=== PATIENT | female | born 1950 | race Caucasian/White ===

== ENCOUNTER 2021-03-14 09:10 | Emergency (ER) | payer MEDICARE, OTHER ==
--- NOTE | 2021-03-14 09:56 | EDM.PDOC ---
<Srinivasa Perry - Last Filed: 03/14/21 19:23> ED HPI GENERAL MEDICAL PROBLEM - General Chief Complaint: Abdominal Pain Stated Complaint: ABDOMINAL PAIN Time Seen by Provider: 03/14/21 09:46 - History of Present Illness INITIAL COMMENTS - FREE TEXT/NARRATIVE: 70-year-old female presents the emergency room with abdominal pain. This is been going on for a couple of days now. She says that she gets the dry heaves with this and this actually helps relieve some of the pressure. Patient has had a significant history of a bariatric surgery back in 1984 where she had a stapling procedure done. Patient has not had any fevers or chills no diarrhea no black or tarry stools. Patient gets intermittent discomfort in this area and Mylanta usually helps with this. The patient had an EGD done this spring and everything was reported back to the patient is normal. Patient also had a cardiac catheterization done about a month ago and everything was reported back to the patient is normal. Patient does have a history of a bowel obstruction a couple of years ago. Bilateral Upper Abdomen Pain Score (Numeric/FACES): 8 - Related Data Allergies Allergy/AdvReac Type Severity Reaction Status Date / Time No Known Allergies Allergy Verified 03/14/21 22:49 Home Meds: Home Meds . [No Known Home Meds] 03/14/21 [History] Past Medical History Endocrine/Metabolic History: Reports: Obesity/BMI 30+ - Past Surgical History HEENT Surgical History: Reports: Tonsillectomy GI Surgical History: Reports: Bariatric Procedure, Cholecystectomy, Other (See Below) Other GI Surgeries/Procedures: Leak from gastric bypass in 2018 that required her abdomen to be opened to fix it. Social & Family History - Tobacco Use Tobacco Use Status *Q: Never Tobacco User - Caffeine Use Caffeine Use: Reports: Coffee, Tea - Recreational Drug Use Recreational Drug Use: No ED ROS GENERAL - Review of Systems Review Of Systems: See Below Constitutional: Reports: No Symptoms HEENT: Reports: No Symptoms, Vertigo Cardiovascular: Reports: No Symptoms GI/Abdominal: Reports: Abdominal Pain, Nausea, Vomiting. Denies: Black Stool, Bloody Stool, Constipation, Diarrhea : Reports: No Symptoms Musculoskeletal: Reports: No Symptoms Skin: Reports: No Symptoms Neurological: Reports: No Symptoms ED EXAM, GENERAL - Physical Exam Exam: See Below Exam Limited By: No Limitations General Appearance: Alert, No Apparent Distress, Obese Head: Atraumatic, Normocephalic Neck: Normal Inspection, Supple, Non-Tender, Full Range of Motion Respiratory/Chest: No Respiratory Distress, Lungs Clear, Normal Breath Sounds Cardiovascular: Regular Rate, Rhythm, No Edema, No Murmur GI/Abdominal: Normal Bowel Sounds, Soft, Tender (Left upper quadrant and epigastric discomfort) Back Exam: Normal Inspection. No: CVA Tenderness (L), CVA Tenderness (R) Extremities: Normal Inspection, No Pedal Edema Neurological: Alert, Oriented, Normal Cognition Course - Re-Assessments/Exams Free Text/Narrative Re-Assessment/Exam: 03/14/21 11:29 Was considering checking a GI, cocktail to see if this helps with her symptoms after reviewing her labs. Patient does not think she can get this down she is not convinced that the Zofran that we gave her with with the fluid bolus actually helped much she at this time she would like something for pain. I will go ahead and check a CT at this time as I am uncertain exactly what she had do ne with her stomach. 03/14/21 11:33 Also her urine is contaminated we will check a mini cath specimen 03/14/21 15:[address] Skaggs, on-call surgeon he was able to review the CAT scan he will come down and evaluate the patient. 03/14/21 18:21 She was evaluated by Dr. Skaggs please refer to his note he had the opportunity to discuss this with the surgeons at [facility] whose recommendation was to transfer the patient to [facility] in [place]. I discussed the situation with Suzi at the transfer center at [facility] who discussed the situation with Dr. Jenkins who is in the middle of her procedure and will get back to me in approximately 20 minutes. 03/14/21 19:23 I did review the situation with Dr. Jenkins who agrees the patient should come over however he needs to find an accepting physician from either surgery or gastroenterology he is working on it at this time and will get back to us. Departure - Departure Disposition: DC/Tfer to Acute Hospital 02 Clinical Impression: Abdominal pain, Nausea, Status post gastric bypass for obesity - Discharge Information Referrals: PCP,None [Ordering Only Provider] - Forms: ED Department Discharge Sepsis Event Note (ED) - Evaluation Sepsis Screening Result: No Definite Risk <Wan Thurston - Last Filed: 03/14/21 23:09> #1 Interpretation EKG Date: 03/14/21 Time: 10:06 Rhythm: NSR Rate (Beats/Min): 63 [place]: Normal P-Wave: Present QRS: Normal ST-T: Normal QT: Normal Comparison: NA - No Prior EKG Course - Vital Signs Last Recorded V/S: Last Vital Signs Temp 35.9 C L 03/14/21 09:17 Pulse 77 03/14/21 10:30 Resp 16 03/14/21 09:17 BP 140/90 03/14/21 10:30 Pulse Ox 99 03/14/21 10:30 - Orders/Labs/Meds Orders: Active Orders 24 hr Category Date Time Status EKG Documentation Completion [RC] STAT Care 03/14/21 09:56 Active Insert Urinary Catheter [OM.PC] Stat Care 03/14/21 12:20 Ordered Urinary Catheter Assessment [RC] ASDIRECTED Care 03/14/21 12:42 Active CULTURE URINE [MREF] Stat Lab 03/14/21 10:03 Stop Req Lactated Ringers [Ringers, Lactated] 1,000 ml Med 03/14/21 10:15 Active IV ASDIRECTED Sodium Chloride 0.9% [Saline Flush] Med 03/14/21 11:49 Active 10 ml FLUSH ONETIME PRN Medication Orders Lactated Ringer's (Ringers, Lactated) 1,000 mls @ 125 mls/hr IV ASDIRECTED DORA Last Admin: 03/14/21 19:29 Dose: 125 mls/hr Documented by: KEYUR Sodium Chloride (Sodium Chloride 0.9% 10 Ml Syringe) 10 ml FLUSH ONETIME PRN PRN Reason: IV FLUSH Last Admin: 03/14/21 12:59 Dose: 10 ml Documented by: MICHELLE Labs: Laboratory Tests 03/14/21 03/14/21 03/14/21 Range/Units 09:27 09:27 10:03 WBC 7.51 (3.98-10.04) K/mm3 RBC 4.45 (3.98-5.22) M/mm3 Hgb 14.4 (11.2-15.7) gm/dl Hct 42.7 (34.1-44.9) % MCV 96.0 H (79.4-94.8) fl MCH 32.4 H (25.6-32.2) pg MCHC 33.7 (32.2-35.5) g/dl RDW Std Deviation 45.1 (36.4-46.3) fL Plt Count 255 (182-369) K/mm3 MPV 10.2 (9.4-12.3) fl Neut % (Auto) 82.4 H (34.0-71.1) % Lymph % (Auto) 11.7 L (19.3-51.7) % [place] % (Auto) 5.3 (4.7-12.5) % Eos % (Auto) 0.3 L (0.7-5.8) Baso % (Auto) 0.3 (0.1-1.2) % Neut # (Auto) 6.19 H (1.56-6.13) K/mm3 Lymph # (Auto) 0.88 L (1.18-3.74) K/mm3 [place] # (Auto) 0.40 H (0.24-0.36) K/mm3 Eos # (Auto) 0.02 L (0.04-0.36) K/mm3 Baso # (Auto) 0.02 (0.01-0.08) K/mm3 Sodium 143 (136-145) mEq/L Potassium 3.9 (3.5-5.1) mEq/L Chloride 105 (98-107) mEq/L Carbon Dioxide 26 (21-32) mEq/L Anion Gap 15.9 H (5-15) BUN 18 (7-18) mg/dL Creatinine 1.5 H (0.55-1.02) mg/dL Est Cr Clr Drug Dosing 29.28 mL/min Estimated GFR (MDRD) 34 (>60) mL/min BUN/Creatinine Ratio 12.0 L (14-18) Glucose 132 H (70-99) mg/dL Calcium 9.1 (8.5-10.1) mg/dL Total Bilirubin 0.8 (0.2-1.0) mg/dL AST 23 (15-37) U/L ALT 24 (14-59) U/L Alkaline Phosphatase 95 (46-116) U/L Troponin I < 0.017 (0.00-0.056) ng/mL Total Protein 6.8 (6.4-8.2) g/dl Albumin 3.6 (3.4-5.0) g/dl Globulin 3.2 gm/dL Albumin/Globulin Ratio 1.1 (1-2) Lipase 157 (73-393) U/L Urine Color Dark yellow (Yellow) Urine Appearance Clear (Clear) Urine pH 6.5 (5.0-8.0) Ur Specific [place] 1.025 (1.005-1.030) Urine Protein 1+ H (Negative) Urine Glucose (UA) Negative (Negative) Urine Ketones Negative (Negative) Urine Occult Blood Negative (Negative) Urine Nitrite Negative (Negative) Urine Bilirubin 1+ H (Negative) Urine Urobilinogen 0.2 (0.2-1.0) Ur Leukocyte Esterase Trace H (Negative) U Hyaline Cast (Auto) 0-5 (0-5) /lpf Urine RBC 5-10 H (0-5) /hpf Urine WBC 10-20 H (0-5) /hpf Ur Epithelial Cells (0-5) /hpf Ur Squamous Epith Cells 5-10 H (0-5) /hpf Amorphous Sediment (NOT SEEN) /hpf Urine Bacteria Moderate H (FEW) /hpf Urine Mucus Moderate H (FEW) /hpf /15/ Range/Units 12:20 WBC (3.98-10.04) K/mm3 RBC (3.98-5.22) M/mm3 Hgb (11.2-15.7) gm/dl Hct (34.1-44.9) % MCV (79.4-94.8) fl MCH (25.6-32.2) pg MCHC (32.2-35.5) g/dl RDW Std Deviation (36.4-46.3) fL Plt Count (182-369) K/mm3 MPV (9.4-12.3) fl Neut % (Auto) (34.0-71.1) % Lymph % (Auto) (19.3-51.7) % [place] % (Auto) (4.7-12.5) % Eos % (Auto) (0.7-5.8) Baso % (Auto) (0.1-1.2) % Neut # (Auto) (1.56-6.13) K/mm3 Lymph # (Auto) (1.18-3.74) K/mm3 [place] # (Auto) (0.24-0.36) K/mm3 Eos # (Auto) (0.04-0.36) K/mm3 Baso # (Auto) (0.01-0.08) K/mm3 Sodium (136-145) mEq/L Potassium (3.5-5.1) mEq/L Chloride (98-107) mEq/L Carbon Dioxide (21-32) mEq/L Anion Gap (5-15) BUN (7-18) mg/dL Creatinine (0.55-1.02) mg/dL Est Cr Clr Drug Dosing mL/min Estimated GFR (MDRD) (>60) mL/min BUN/Creatinine Ratio (14-18) Glucose (70-99) mg/dL Calcium (8.5-10.1) mg/dL Total Bilirubin (0.2-1.0) mg/dL AST (15-37) U/L ALT (14-59) U/L Alkaline Phosphatase (46-116) U/L Troponin I (0.00-0.056) ng/mL Total Protein (6.4-8.2) g/dl Albumin (3.4-5.0) g/dl Globulin gm/dL Albumin/Globulin Ratio (1-2) Lipase (73-393) U/L Urine Color Yellow (Yellow) Urine Appearance Clear (Clear) Urine pH 7.5 (5.0-8.0) Ur Specific [place] 1.020 (1.005-1.030) Urine Protein 1+ H (Negative) Urine Glucose (UA) Negative (Negative) Urine Ketones 1+ H (Negative) Urine Occult Blood Negative (Negative) Urine Nitrite Negative (Negative) Urine Bilirubin Negative (Negative) Urine Urobilinogen 0.2 (0.2-1.0) Ur Leukocyte Esterase Negative (Negative) U Hyaline Cast (Auto) (0-5) /lpf Urine RBC Not seen (0-5) /hpf Urine WBC Not seen (0-5) /hpf Ur Epithelial Cells Not seen (0-5) /hpf Ur Squamous Epith Cells (0-5) /hpf Amorphous Sediment Moderate H (NOT SEEN) /hpf Urine Bacteria Moderate H (FEW) /hpf Urine Mucus Many H (FEW) /hpf Meds: Medications Generic Name Dose Route Start Last Admin Trade Name Freq PRN Reason Stop Dose Admin Lactated Ringer's 1,000 mls @ 125 mls/hr 03/14/21 10:15 03/14/21 19:29 Ringers, Lactated IV 125 mls/hr ASDIRECTED DORA Administration Sodium Chloride 10 ml 03/14/21 11:49 03/14/21 12:59 Sodium Chloride 0.9% 10 Ml Syringe FLUSH 10 ml ONETIME PRN Administration IV FLUSH Discontinued Medications Generic Name Dose Route Start Last Admin Trade Name Freq PRN Reason Stop Dose Admin Al Hydroxide/Mg Hydroxide 30 0 ml 03/14/21 11:25 ml/ Lidocaine HCl 15 ml PO 03/14/21 11:26 ONETIME ONE Diatrizoate Meglum/Diatrizoate Sod 120 ml 03/14/21 11:49 03/14/21 12:59 Diatrizoate Meglumine/Diatrizoate Sodium 37% 120 Ml Bottle PO 03/14/21 11:50 30 ml ONETIME ONE Administration Hydromorphone HCl 0.5 mg 03/14/21 11:30 03/14/21 12:00 Hydromorphone 0.5 Mg/0.5 Ml Syringe IVPUSH 03/14/21 11:31 0.5 mg ONETIME ONE Administration Hydromorphone HCl 0.5 mg 03/14/21 15:06 03/14/21 15:24 Hydromorphone 0.5 Mg/0.5 Ml Syringe IVPUSH 03/14/21 15:07 0.5 mg ONETIME ONE Administration Hydromorphone HCl 0.5 mg 03/14/21 16:00 03/14/21 16:33 Hydromorphone 0.5 Mg/0.5 Ml Syringe IVPUSH 03/14/21 16:01 0.5 mg ONETIME ONE Administration Hydromorphone HCl 1 mg 03/14/21 19:12 03/14/21 19:29 Hydromorphone 1 Mg/Ml Syringe IVPUSH 03/14/21 19:13 1 mg ONETIME ONE Administration Lactated Ringer's 500 mls @ 999 mls/hr 03/14/21 10:05 03/14/21 10:12 Ringers, Lactated IV 03/14/21 10:35 999 mls/hr .BOLUS ONE Administration Iopamidol 100 ml 03/14/21 11:49 03/14/21 12:59 Iopamidol 612 Mg/Ml 100 Ml Bottle IVPUSH 03/14/21 11:50 100 ml ONETIME ONE Administration Ketorolac Tromethamine 30 mg 03/14/21 21:05 03/14/21 21:09 Ketorolac 30 Mg/Ml Sdv IVPUSH 03/14/21 21:06 30 mg ONETIME STA Administration Ondansetron HCl 4 mg 03/14/21 10:05 03/14/21 10:12 Ondansetron 4 Mg/2 Ml Sdv IVPUSH 03/14/21 10:06 4 mg ONETIME ONE Administration Ondansetron HCl 4 mg 03/14/21 11:31 03/14/21 12:00 Ondansetron 4 Mg/2 Ml Sdv IVPUSH 03/14/21 11:32 4 mg ONETIME ONE Administration - Re-Assessments/Exams Free Text/Narrative Re-Assessment/Exam: 03/14/21 20:[address] Larson, [employer] at [facility], at 2023. Unfortunately, I was unable to discuss the results of the CT scan, as they are not documented in this chart. I will review the work-up done so far, then call him back. 03/14/21 20:54 I have reviewed the patient's chart, including the consultation by Dr. Skaggs, and evaluated the patient. The patient's CBC is unremarkable. Her CMP is remarkable for an anion gap slightly elevated at 15.9, but with a bicarbonate normal at 26. Her Cr elevated at 1.5, but with a BUN normal at 18, and mild hyperglycemia of 132, with remainder of her CMP being unremarkable. Her lipase level is within normal limits at 157. Her troponin is undetectably low. Her urinalysis by quick catheter is unremarkable. CT of the abdomen and pelvis with oral and IV contrast is read by Dr. Rider as: 1. Slightly dilated fluid-filled portions of a post-operative stomach. Uncertain if this is normal or represents an abnormality in stomach emptying. Please correlate if patient is symptomatic to this region. 2. Small amount of gastroesophageal reflux is seen. 3. Slight degenerative change within the spine and sacroiliac joints. Dr. 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 03/14/21 21:43 Case discussed at length with Dr. Larson at 21:30. He doubts that the patient has an obstruction of her gastric remnant, because if she did, he felt that her symptoms would not be so subtle. The patient is not in extremis. He does not see an indication for transfer to [place] in the middle of the night. He recommended instead that the patient be admitted to our hospital for observation. He offered to discuss the case with Dr. Skaggs if Dr. Skaggs was uncomfortable with admission, and he provided his cell phone number. 03/14/21 21:49 The above was discussed with Dr. Skaggs at 21:45. He is not comfortable with admitting the patient, however, he agreed to discuss the case with Dr. Larson. I gave him Dr. Larson's cellphone number, and after they talk, he will call me back. 03/14/21 21:[address] Skaggs at 21:57. He had called earlier to confirm Dr. Larson's cellphone number. He stated that despite numerous calls, it keeps going to voicemail. He stated that from his perspective, the patient has a complicated past surgical history, has symptoms concerning for obstruction, has a CT scan that suggests obstruction, and that he reviewed the case with 2 [facility] in [place], all whom agreed that the patient required a higher level of care. 03/14/21 22:[address] Skaggs at 22:[address] Larson called him, and accepted the patient for transfer to [place]. The patient will be transported by fixed wing. Departure - Departure Time of Disposition: 22:15 Condition: Good - Discharge Information *PRESCRIPTION DRUG MONITORING PROGRAM REVIEWED*: Not Applicable *COPY OF PRESCRIPTION DRUG MONITORING REPORT IN PATIENT LUPILLO: Not Applicable
[2021-03-14] MEDS ORDERED: Ondansetron 4 MG/2 ML SDV IVPUSH ONE ×2 (10:05→11:31)
[2021-03-14] MEDS ORDERED: Lactated Ringers 500 ML IV ONE (10:05)
[2021-03-14] MEDS ORDERED: Lactated Ringers 1,000 ML IV SCH (10:15)
[2021-03-14] MEDS ORDERED: Alum Hydrox/Mag Hydrox/Simeth 30 ML, Lidocaine 2% 15 ML PO ONE ×2 (11:25)
[2021-03-14] MEDS ORDERED: HYDROmorphone 0.5 MG/0.5 ML Syringe IVPUSH ONE ×3 (11:30→16:00)
[2021-03-14] MEDS ORDERED: Diatrizoate Meglumine/Diatrizoate Sodium 37% 120 ML Bottle PO ONE (11:49)
[2021-03-14] MEDS ORDERED: Iopamidol 612 MG/ML 100 ML Bottle IVPUSH ONE (11:49)
[2021-03-14] MEDS ORDERED: Sodium Chloride 0.9% 10 ML Syringe FLUSH PRN (11:49)
--- NOTE | 2021-03-14 13:33 | CT ---
CT abdomen and pelvis Technique: Multiple axial sections were obtained from above the dome of the diaphragm inferiorly through the pubic symphysis. Intravenous and oral contrast was utilized. Delayed images were also obtained through the bladder. Reconstructed coronal and sagittal images were obtained. Findings: Visualized lung bases show nothing acute. Liver contains no focal parenchymal abnormality. Prior cholecystectomy is noted with surgical clips being seen. Prior stomach surgery is noted. Residual stomach is slightly dilated and fluid-filled. Not certain if this is abnormal or normal. Duodenum and other portions of the bowel appear within normal limits. Small amount of gastroesophageal reflux is seen. Pancreas is within normal limits. Adrenal glands show no nodule. Kidneys show symmetric contrast enhancement without hydronephrosis or mass. Abdominal aorta shows no aneurysm. No retroperitoneal adenopathy or mesenteric abnormalities are seen. No pelvic mass or adenopathy is noted. Appendix is not visualized. Delayed images show contrast within the distal ureters and within the bladder. Bone window settings were reviewed which show mild scattered degenerative change within the spine. Vacuum phenomena is also noted within the sacroiliac joints. No acute osseous abnormality is appreciated. Impression: 1. Slightly dilated fluid-filled portions of a post-operative stomach. Uncertain if this is normal or represents an abnormality in stomach emptying. Please correlate if patient is symptomatic to this region. 2. Small amount of gastroesophageal reflux is seen. 3. Slight degenerative change within the spine and sacroiliac joints. Diagnostic code #3
--- NOTE | 2021-03-14 16:29 | PCM.CONS ---
H&P History of Present Illness - General Date of Service: 03/14/21 Source of Information: Patient, Family History Limitations: Reports: No Limitations - History of Present Illness Initial Comments - Free Text/Narative: Mrs. Hebert is a 70 yo woman presenting with left upper quadrant pain for the past two days. She has not had this kind of pain before. It is severe and associated with retching. Her history is significant for open Jose G-en-[id number] gastric bypass for obesity in 1984. 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 She has also had issues more recently with peptic ulcer disease likely related in part to chronic NSAID use and says she was "at [facility] for a year" with the remnant stomach scoped through a gastrogastric stent. She takes famotidine rather than a PPI due to her chronic kidney disease. She is morbidly obese and has had an open cholecystectomy; laparoscopic approach was aborted due to extensive adhesions. Here in the ER, she is stable, in moderate distress, without peritonitis and reassuring labs. CT is worrisome for what looks like obstruction of the remnant at the pylorus. Bilateral Upper Abdomen Pain Score (Numeric/FACES): 8 - Related Data Allergies/Adverse Reactions: Allergies Allergy/AdvReac Type Severity Reaction Status Date / Time No Known Allergies Allergy Verified 03/14/21 09:20 Home Medications: Home Meds . [No Known Home Meds] 03/14/21 [History] Past Medical History Endocrine/Metabolic History: Reports: Obesity/BMI 30+ - Past Surgical History HEENT Surgical History: Reports: Tonsillectomy GI Surgical History: Reports: Bariatric Procedure, Cholecystectomy, Other (See Below) Other GI Surgeries/Procedures: Leak from gastric bypass in 2018 that required her abdomen to be opened to fix it. Social & Family History - Tobacco Use Tobacco Use Status *Q: Never Tobacco User - Caffeine Use Caffeine Use: Reports: Coffee, Tea - Recreational Drug Use Recreational Drug Use: No H&P Review of Systems - Review of Systems: Review Of Systems: See Below General: Reports: Malaise HEENT: Reports: No Symptoms Pulmonary: Reports: No Symptoms Cardiovascular: Reports: No Symptoms Gastrointestinal: Reports: Abdominal Pain, Anorexia, Diarrhea Genitourinary: Reports: No Symptoms Musculoskeletal: Reports: No Symptoms Skin: Reports: No Symptoms Psychiatric: Reports: No Symptoms Neurological: Reports: No Symptoms Hematologic/Lymphatic: Reports: No Symptoms Immunologic: Reports: No Symptoms Exam - Exam Exam: See Below - Vital Signs Vital Signs: Last Vital Signs Temp 35.9 C L 03/14/21 09:17 Pulse 77 03/14/21 10:30 Resp 16 03/14/21 09:17 BP 140/90 03/14/21 10:30 Pulse Ox 99 03/14/21 10:30 Weight: 127.369 kg - Exam General: Alert, Oriented, Cooperative, Moderate Distress HEENT: Conjunctiva Clear Neck: Supple, Trachea Midline Lungs: Clear to Auscultation, Normal Respiratory Effort Cardiovascular: Regular Rate, Regular Rhythm GI/Abdominal Exam: Normal Bowel Sounds, Soft, Other (tender at LUQ without palpable mass or peritonitis) Extremities: Normal Inspection Skin: Warm, Dry Neuro Extensive - Mental Status: Alert, Oriented x3 Psychiatric: Normal Mood - Patient Data Lab Results Last 24 hrs: Laboratory Results - last 24 hr 03/14/21 03/14/21 03/14/21 Range/Units 09:27 09:27 10:03 WBC 7.51 (3.98-10.04) K/mm3 RBC 4.45 (3.98-5.22) M/mm3 Hgb 14.4 (11.2-15.7) gm/dl Hct 42.7 (34.1-44.9) % MCV 96.0 H (79.4-94.8) fl MCH 32.4 H (25.6-32.2) pg MCHC 33.7 (32.2-35.5) g/dl RDW Std Deviation 45.1 (36.4-46.3) fL Plt Count 255 (182-369) K/mm3 MPV 10.2 (9.4-12.3) fl Neut % (Auto) 82.4 H (34.0-71.1) % Lymph % (Auto) 11.7 L (19.3-51.7) % [place] % (Auto) 5.3 (4.7-12.5) % Eos % (Auto) 0.3 L (0.7-5.8) Baso % (Auto) 0.3 (0.1-1.2) % Neut # (Auto) 6.19 H (1.56-6.13) K/mm3 Lymph # (Auto) 0.88 L (1.18-3.74) K/mm3 [place] # (Auto) 0.40 H (0.24-0.36) K/mm3 Eos # (Auto) 0.02 L (0.04-0.36) K/mm3 Baso # (Auto) 0.02 (0.01-0.08) K/mm3 Sodium 143 (136-145) mEq/L Potassium 3.9 (3.5-5.1) mEq/L Chloride 105 (98-107) mEq/L Carbon Dioxide 26 (21-32) mEq/L Anion Gap 15.9 H (5-15) BUN 18 (7-18) mg/dL Creatinine 1.5 H (0.55-1.02) mg/dL Est Cr Clr Drug Dosing 29.28 mL/min Estimated GFR (MDRD) 34 (>60) mL/min BUN/Creatinine Ratio 12.0 L (14-18) Glucose 132 H (70-99) mg/dL Calcium 9.1 (8.5-10.1) mg/dL Total Bilirubin 0.8 (0.2-1.0) mg/dL AST 23 (15-37) U/L ALT 24 (14-59) U/L Alkaline Phosphatase 95 (46-116) U/L Troponin I < 0.017 (0.00-0.056) ng/mL Total Protein 6.8 (6.4-8.2) g/dl Albumin 3.6 (3.4-5.0) g/dl Globulin 3.2 gm/dL Albumin/Globulin Ratio 1.1 (1-2) Lipase 157 (73-393) U/L Urine Color Dark yellow (Yellow) Urine Appearance Clear (Clear) Urine pH 6.5 (5.0-8.0) Ur Specific Calvin 1.025 (1.005-1.030) Urine Protein 1+ H (Negative) Urine Glucose (UA) Negative (Negative) Urine Ketones Negative (Negative) Urine Occult Blood Negative (Negative) Urine Nitrite Negative (Negative) Urine Bilirubin 1+ H (Negative) Urine Urobilinogen 0.2 (0.2-1.0) Ur Leukocyte Esterase Trace H (Negative) U Hyaline Cast (Auto) 0-5 (0-5) /lpf Urine RBC 5-10 H (0-5) /hpf Urine WBC 10-20 H (0-5) /hpf Ur Epithelial Cells (0-5) /hpf Ur Squamous Epith Cells 5-10 H (0-5) /hpf Amorphous Sediment (NOT SEEN) /hpf Urine Bacteria Moderate H (FEW) /hpf Urine Mucus Moderate H (FEW) /hpf 03/14/ Range/Units 12:20 WBC (3.98-10.04) K/mm3 RBC (3.98-5.22) M/mm3 Hgb (11.2-15.7) gm/dl Hct (34.1-44.9) % MCV (79.4-94.8) fl MCH (25.6-32.2) pg MCHC (32.2-35.5) g/dl RDW Std Deviation (36.4-46.3) fL Plt Count (182-369) K/mm3 MPV (9.4-12.3) fl Neut % (Auto) (34.0-71.1) % Lymph % (Auto) (19.3-51.7) % [place] % (Auto) (4.7-12.5) % Eos % (Auto) (0.7-5.8) Baso % (Auto) (0.1-1.2) % Neut # (Auto) (1.56-6.13) K/mm3 Lymph # (Auto) (1.18-3.74) K/mm3 [place] # (Auto) (0.24-0.36) K/mm3 Eos # (Auto) (0.04-0.36) K/mm3 Baso # (Auto) (0.01-0.08) K/mm3 Sodium (136-145) mEq/L Potassium (3.5-5.1) mEq/L Chloride (98-107) mEq/L Carbon Dioxide (21-32) mEq/L Anion Gap (5-15) BUN (7-18) mg/dL Creatinine (0.55-1.02) mg/dL Est Cr Clr Drug Dosing mL/min Estimated GFR (MDRD) (>60) mL/min BUN/Creatinine Ratio (14-18) Glucose (70-99) mg/dL Calcium (8.5-10.1) mg/dL Total Bilirubin (0.2-1.0) mg/dL AST (15-37) U/L ALT (14-59) U/L Alkaline Phosphatase (46-116) U/L Troponin I (0.00-0.056) ng/mL Total Protein (6.4-8.2) g/dl Albumin (3.4-5.0) g/dl Globulin gm/dL Albumin/Globulin Ratio (1-2) Lipase (73-393) U/L Urine Color Yellow (Yellow) Urine Appearance Clear (Clear) Urine pH 7.5 (5.0-8.0) Ur Specific Calvin 1.020 (1.005-1.030) Urine Protein 1+ H (Negative) Urine Glucose (UA) Negative (Negative) Urine Ketones 1+ H (Negative) Urine Occult Blood Negative (Negative) Urine Nitrite Negative (Negative) Urine Bilirubin Negative (Negative) Urine Urobilinogen 0.2 (0.2-1.0) Ur Leukocyte Esterase Negative (Negative) U Hyaline Cast (Auto) (0-5) /lpf Urine RBC Not seen (0-5) /hpf Urine WBC Not seen (0-5) /hpf Ur Epithelial Cells Not seen (0-5) /hpf Ur Squamous Epith Cells (0-5) /hpf Amorphous Sediment Moderate H (NOT SEEN) /hpf Urine Bacteria Moderate H (FEW) /hpf Urine Mucus Many H (FEW) /hpf Result Diagrams: 03/14/21 09:27 03/14/21 09:27 Sepsis Event Note - Evaluation Sepsis Screening Result: No Definite Risk - Focused Exam Vital Signs: Vital Signs Temp Pulse Resp BP Pulse Ox 03/14/21 10:30 77 140/90 99 03/14/21 09:17 35.9 C L 69 16 160/92 H 95 Consult PN Assessment/Plan Problem List Initiated/Reviewed/Updated: Yes Plan: After talking to and examining the patient as well as the labs and CT images, I discussed the case with Drs. Paz and Mario, general surgeons, in [place]. We are in agreement that the images are worrisome for obstruction of the remnant stomach, and that urgent access and treatment would be best done with advanced endoscopic techniques at [facility] given the patient's status and history. I discussed this with the patient and her and the ER team. Requesting Provider: Vicky Date Consult Requested: 03/14/21 Patient History Reviewed: Yes Admission H&P Reviewed: Yes Notified Requestor: Yes
[2021-03-14] MEDS ORDERED: HYDROmorphone 1 MG/ML Syringe IVPUSH ONE (19:12)
[2021-03-14] MEDS ORDERED: Ketorolac 30 MG/ML SDV IVPUSH STA (21:05)
== END 2021-03-14 23:17 ==
LOC: JD.ED 09:10
DX: R10.12 Left upper quadrant pain (principal); R10.13 Epigastric pain; R11.2 Nausea with vomiting, unspecified; E66.9 Obesity, unspecified; Z68.42 Body mass index [BMI] 45.0-49.9, adult; Z98.84 Bariatric surgery status
CPT/HCPCS: 36415; 74177; 80053; 81001; 83690; 84484; 85025; 87086; 93005; 96374; 96375; 96376; 99285; J1170; J1885; J2405; J7120; Q9963; Q9967; 93010; 99284